=== PATIENT | female | born 1995 | race Hispanic/Latino ===

== ENCOUNTER 2016-07-30 19:51 | Emergency (ER) | payer OTHER ==
[~2016-07-30] VITALS: Ht 154.9 cm; Wt 77.2 kg
[~2016-07-30 19:51] MED LIST: MEDR150D9 IM; PROC25SU30 RC; RIZA10TA23 PO
[2016-07-30 19:52] VITALS: BP 108/71; PULSE 71; RESP 17; O2SAT 96
--- NOTE | 2016-07-30 20:28 | DRSVH ---
PROCEDURE: X-RAY FINGERS, TWO VIEWS INDICATIONS: possible fracture finger TECHNIQUE: AP hand, 2 views of the second finger(s) acquired. COMPARISON: None. FINDINGS: Bones: No fractures or dislocations. No suspicious bony lesions. Soft tissues: No suspicious soft tissue calcifications. IMPRESSION: No displaced fractures. Dictated by: Reed Gao M.D. on 07/30/2016 at 20:25 Approved by: Reed Gao M.D. on 07/30/2016 at 20:26
--- NOTE | 2016-07-30 21:02 | ED.REPORT ---
HPI-Extremity Problem Upper Date of Service July 30, 2016 ED Provider: Chance Escobar MD The pt is a healthy 21 y/o female presenting to the ED complaining of an injury to her R index finger. The injury was due to breaking a window w/ her hand. She has no sensation around the area of injury. The pt also reports seeing part of her artificial nail in her actual nail bed. She is unsure if her tetanus shot is up to date due to [place] when she was 16 years old. Nursing Notes Stated Complaint: R/HAND FINGER INJURY Chief Complaint: Extremity Trauma Nursing Notes Reviewed: Yes Allergies: Coded Allergies: Sulfa (Sulfonamide Antibiotics) (Verified Allergy, Severe, HIVES, 11/12/15) Scheduled Medroxyprogesterone Acetate (Depo-Provera) 150 Mg/1 Ml Syringe 150 MG IM Q 3 MOS Scheduled PRN Prochlorperazine Maleate (Compazine Suppository) 25 Mg Supp.rect 25 MG RC Q8 PRN PRN For Nausea/Vomiting Rizatriptan ODT (Maxalt TECH INTERN) 10 Mg Tablet 10 MG PO [id number] PRN PRN migraine General Time Seen by MD: 21:01 Chief Complaint Finger injury right 2 Hx Obtained From: Patient Arrived By: Walk-in Onset Occurred: Just prior to arrival Symptom Duration: Since onset Recent Healthcare: No recent doctor visit, No recent hospitalization Similar Sx Previous: No Past Medical History Past Medical History Non-cardiac chest pain syptomatic cholelithiasis Reports: Migraines Past Surgical History None reported Smoking History Never Smoker Social History Alcohol Use: "Social" Ambulatory Status Independent Review of Systems R index finger pain and numbness Constitutional: Denies: Chills, Fever Complete sys rev & neg: except as marked. Physical Exam Initial Vital Signs Vital Signs (First) Date Time Temp Pulse Resp B/P Pulse Ox O2 Delivery O2 Flow Rate FiO2 07/30/16 19:52 36.7 71 17 108/71 96 Room Air Initial VS: Reviewed General/Constitutional: Well-developed, Well-nourished Head / Eyes: Atraumatic, Normocephalic, PERRL ENT: Mucous membranes moist, Conjunctiva normal, No scleral icterus Neck: Supple, Non-tender, Full range of motion Respiratory: Breath sounds normal, Clear to auscultation, No respiratory distress Cardiovascular: Regular rate & rhythm, Heart sounds normal, Intact distal pulses Abdomen / GI: Soft, Non-tender, No guarding, No rebound, No distention Back: No CVA tenderness Lower Extremities: Vascular intact, Neuro intact, No swelling, No tenderness Skin: Warm, Dry, No cyanosis Neurologic: Alert, Oriented, Nonfocal Psychiatric: Mood/affect normal, Behavior normal, Normal thought content Upper Extremity / MS: Full range of motion, No deformity Wrist / Hand: Full range of motion, No deformity Subungual hematoma of index finger of R hand under artificial nail which appears like it is draining Re-Eval/Medical Decision Med Decision/Clinical Course 21-year-old with a crush injury to her finger, and blood coming from the edges of the nail with a presumptive subungual hematoma. She has a opaque artificial nail, and this cannot readily be removed, so evaluation of the nailbed is impossible at the moment. It is draining in any case. It was soaked and is now dressed in bacitracin and she is discharged in stable condition. Source of Hx: Old records Re-Evaluation/Progress : Time of Eval: 21:25 Re-Evaluation/Progress Note: Pt rechecked. Informed pt of plan for treatment. Pt understands and agrees with plan for treatment. F/Uinstructions and RTER warnings given. All questions addressed. Counseled Regarding: Diagnosis, Need for follow-up, When/why to return to ED Discharge & Departure Shift Change Sign-Out Response to Therapy: Improved Impression: Primary Impression: Subungual hematoma of finger of right hand Encounter type: initial encounter Qualified Code: S60.10XA - Contusion of unspecified finger with damage to nail, initial encounter Disposition: Home Discharge Condition All VS Reviewed: Yes Condition: Stable Additional Instructions: Warm soak through four times daily and then bacitracin to the open areas and then cover with clean Band-Aid. Follow-up with your doctor in the office if needed. Ibuprofen three times daily if needed for pain. Return if any knee issues, particularly signs of infection. Have your artificial fingernail removed by your manicurist. It can be replaced once the finger has healed. Referrals: [facility] (PCP) Scribe Attestation Portions of this note were transcribed by Marco A Carpenter. I, Dr. Escobar personally performed the history, physical exam and medical decision-making; I reviewed and confirmed the accuracy of the information in the transcribed note. Signed by : Darshan Dave, 07/30/16 and 2114. Chance Escobar MD July 30, 2016 21:01 Marco A Carpenter July 30, 2016 21:07
[2016-07-30] MEDS ORDERED: TdaP Vaccine 0.5 mL Inj IM ONE (21:10)
[2016-07-30 21:56] VITALS: BP 108/71; PULSE 71; RESP 17; O2SAT 96
== END 2016-07-30 21:55 | disposition home or self-care (01) ==
LOC: SED 19:51
DX: S60.121A Contusion of right index finger with damage to nail, initial encounter (principal); W25.XXXA Contact with sharp glass, initial encounter; Y93.9 Activity, unspecified; Y92.9 Unspecified place or not applicable; Y99.8 Other external cause status; Z88.2 Allergy status to sulfonamides; Z23 Encounter for immunization